=== PATIENT | male | born 1950 | race Caucasian/White ===

== ENCOUNTER 2020-08-07 08:11 | Outpatient (CLI) | payer MEDICARE, SELFPAY ==
--- NOTE | ~2020-08-07 | CT_ITS ---
EXAMINATION: CT abdomen pelvis w con INDICATION: Right upper quadrant mass and lump TECHNIQUE: Computed tomographic images of the abdomen and pelvis were obtained after the administrati on of 100 cc of Omnipaque 350 intravenous contrast. The dose-length product (DLP) was 851.92 mGy-cm. Automated exposure control and iterative reconstruction technique were employed. COMPARISON: None available FINDINGS: Minimal dependent atelectasis is present in the lung bases. The heart size is normal. The l iver, spleen, pancreas, gallbladder, and adrenal glands are normal. Cysts of the kidneys measure up t o 1.7 cm on the right. No pathologically enlarged abdominal or pelvic lymph nodes are identified. The re is calcified atherosclerosis of the aorta and many of the other arteries. The appendix is normal. There is no free intraperitoneal gas or evidence of bowel obstruction. There is a tiny umbilical shantel ia containing fat. A large volume of colonic stool is present. There is mild lumbar spondylosis. No r ight upper quadrant mass is identified by CT. IMPRESSION: 1. No CT correlate for the patient's symptoms. Reviewed, dictated and finalized at location B.
[2020-08-07 08:43] LABS: Estimated Glomerular Filt Rate > 60
== END 2020-08-07 08:12 | disposition home or self-care (01) ==
PROVIDERS: PCP Family Medicine; Visit Provider Family Medicine
DX: R22.2 Localized swelling, mass and lump, trunk (principal)
CPT/HCPCS: 74177; Q9967

== ENCOUNTER 2020-09-26 15:19 | Emergency (ER) | payer MEDICARE, SELFPAY ==
[2020-09-26 15:30] VITALS: BP 115/89; PULSE 72; RESP 18; TEMP 35.9; O2SAT 100
--- NOTE | 2020-09-26 16:19 | ED.GENADULT ---
HPI - General Adult General Chief complaint: Skin/Abscess/Foreign Body Stated complaint: bite on back, rash Time Seen by Provider: 09/26/20 16:13 Source: patient Mode of arrival: ambulatory Limitations: no limitations History of Present Illness HPI narrative: 69-year-old with no major medical problems here with complaints of insect bite to the left side of the back. He is not quite sure whether its a spider or not at this time. He denies any shortness of breath, chest pain, nausea or vomiting. Complains of rash on the anterior aspect of the chest. Onset (ago): day(s) (1) Location: back Radiation: non-radiation Severity: mild Pain Consistency: constant Relieving factors: none Exacerbating factors: none Associated symptoms: denies other symptoms Related Data Home Medications Medication Instructions Recorded Confirmed finasteride 5 mg tablet 5 mg PO DAILY 07/21/19 07/31/20 Allergies Allergy/AdvReac Type Severity Reaction Status Date / Time No Known Allergies Allergy Verified 07/31/20 10:31 Review of Systems Review of Systems: All systems reviewed & are unremarkable except as noted in HPI and below Constitutional: Constitutional: Reports no additional constitutional complaints Eyes: Eyes: Reports no additional eye complaints ENT: Reports system reviewed and no additional complaints, except as documented Cardiovascular: Cardiovascular: Reports no additional cardiovascular complaints Respiratory: Respiratory: Reports no additional respiratory complaints Musculoskeletal: Musculoskeletal: Reports no additional musculoskeletal complaints Integumentary/Breasts: Skin/Breast: Reports system reviewed and no additional complaints, except as docu and Reports as per HPI Neurologic: Reports system reviewed and no additional complaints, except as documented Psychiatric: Psychiatric: Reports no additional psychiatric complaints [facility] Past Medical History Medical History Abdominal wall mass BMI 29.0-29.9,adult Family History Family History Mother Family history of elevated blood lipids Family history of coronary artery disease Grandparent Cerebrovascular accident Diabetes mellitus Social History Social History Smoking status: Former smoker Second hand tobacco smoke exposure: No Alcohol intake: current Exam Narrative: GENERAL: Well-appearing, well-nourished, and in no acute distress. HEAD: Normocephalic, atraumatic. EYES: PERRLA and EOMI. NECK: Supple. CHEST: Clear to auscultation. No respiratory distress. HEART: Regular rate and rhythm. No murmur heard. Normal peripheral pulses. EXTREMITIES: Normal range of motion. No edema. SKIN: Warm, dry, no obvious rash noted on the chest , a bite yina on the left side below the scapular border , no sign of infection with mild erythema abou2.5 cms in diameter . NEURO: No focal deficits. Alert and oriented x3. PSYCH: Normal mood and affect. Course Course Emergency Course: Inform patient that he does not need any antibiotic at this point it appears to be like a local reaction fluid for of insect bite. Advised him to take steroids for rash. And if it is getting infected follow-up with his primary doctor or return to the ER. Vital Signs Vital signs: Vital Signs Temperature 35.9 C L 09/26/20 15:30 Pulse Rate 72 09/26/20 15:30 Respiratory Rate 18 09/26/20 15:30 Blood Pressure 115/89 09/26/20 15:30 Pulse Oximetry 100 09/26/20 15:30 Temperature 35.9 C L 09/26/20 15:30 Pulse Rate 72 09/26/20 15:30 Respiratory Rate 18 09/26/20 15:30 Blood Pressure 115/89 09/26/20 15:30 Pulse Oximetry 100 09/26/20 15:30 Medical Decision Making Vital Signs Vital Signs: Vital Signs Temperature 35.9 C L 09/26/20 15:30 Pulse Rate 72 09/26/20 15:30 Respiratory Rate 18
== END 2020-09-26 16:36 | disposition home or self-care (01) ==
PROVIDERS: Emergency Provider Family Medicine; PCP Family Medicine
DX: S20.462A Insect bite (nonvenomous) of left back wall of thorax, initial encounter (principal); W57.XXXA Bitten or stung by nonvenomous insect and other nonvenomous arthropods, initial encounter; Z87.891 Personal history of nicotine dependence
CPT/HCPCS: 99283

== ENCOUNTER 2021-08-09 08:56 | Outpatient (CLI) | payer MEDICARE, SELFPAY ==
--- NOTE | ~2021-08-09 | US_ITS ---
EXAMINATION:US venous doppler LE BI INDICATION:Left lower extremity pain TECHNIQUE: Multiple grayscale, color flow and Doppler images of the left lower extremity deep venous systems were obtained and reviewed. COMPARISON:No prior studies for comparison. FINDINGS: The common femoral, superficial femoral and popliteal veins demonstrate normal respiratory variation, augmentation and compressibility. Color flow is also seen within the posterior tibial, pe roneal, greater saphenous and profunda veins. IMPRESSION: 1: No lower extremity deep venous thrombosis. Reviewed, dictated and finalized at location A.
== END 2021-08-09 08:57 | disposition home or self-care (01) ==
PROVIDERS: PCP Family Medicine; Visit Provider Nurse Practitioner Family
DX: M79.662 Pain in left lower leg (principal)
CPT/HCPCS: 93970

== ENCOUNTER 2021-09-20 09:14 | Outpatient (CLI) | payer MEDICARE, SELFPAY ==
--- NOTE | ~2021-09-20 | US_ITS ---
EXAMINATION: US art doppler w press ELISABETH BI DATE: 09/20/2021 14:49 CDT INDICATION: Elevated cholesterol levels. History of smoking. Loss of hair with tingling and numbness and leg pain. TECHNIQUE: Segmental pressures and plethysmographic and Doppler waveforms of the brachial and lower e xtremity arteries were obtained. COMPARISON: None. FINDINGS: Right and left brachial artery pressures of 99 mm Hg and 120 mm Hg, respectively, are concordant (nor mal difference <= 30 mmHg). The right high-thigh pressure index is 1.3 (normal > 1.2). The right ankle-brachial index (CORINNE) is 1. 19 (normal >= 0.9-1.0). The right great toe-brachial index (TBI) is 1.24 (normal >= 0.60). The right lower extremity segmental pressure gradients are normal (normal gradients <= 20-30 mmHg between adjac ent levels on the same leg or the same levels on the two legs). Arterial Doppler waveforms are biphas ic. The left high-thigh pressure index is 1.22. The left CORINNE is 1.2. The left TBI is 1. The left lower ex tremity segmental pressure gradients are normal. Arterial Doppler waveforms are biphasic. IMPRESSION: 1. Normal lower extremity arterial Doppler. Reviewed, dictated and finalized at location A.
== END 2021-09-20 09:15 | disposition home or self-care (01) ==
PROVIDERS: PCP Family Medicine; Visit Provider Nurse Practitioner Family
DX: I73.9 Peripheral vascular disease, unspecified (principal); M79.662 Pain in left lower leg
CPT/HCPCS: 93923

== ENCOUNTER 2024-06-19 13:35 | Emergency (ER) | payer MEDICARE, SELFPAY ==
--- OUTSIDE RECORDS SUMMARY | 2024-06-19 13:37 | XMS_ITS | Clinical Summary ---
Author Organization [facility] Address [address] [place] [id number] Care Team Providers Care Sybase Developer Name Role Phone Miguel Angel Nguyễn MD Primary Care Provider [phone] Allergies No known active allergies Medications simvastatin (ZOCOR) 20 MG tablet Take 1 tablet (20 mg total) by mouth daily. 10/31/2022 Active finasteride (PROSCAR) 5 MG tablet Take 1 tablet (5 mg total) by mouth daily. 12/17/2022 Active diclofenac EC (VOLTAREN) 75 MG tabletIndication s:Pain of left heel Take 1 tablet (75 mg total) by mouth 2 (two) times daily. 60 tablet 01/06/2023 Active Active Problems No known active problems Immunizations Immunization Administration Dates Next Due Influenza (Generic) 11/23/2019,11/17/2018 Influenza Adult (Generic) 11/20/2020,11/22/2017, 11/18/2016,01/11/2015 Pneumococcal (Pneumovax 23) 11/23/2019 Pneumococcal (Prevnar 13) 11/17/2018 Family History Medical History Relation Comments Cancer Brother Cancer Mother Relation Status Comments Brother Mother Social History Tobacco Use Types Packs/Day Years Used Date Smoking Tobacco: Former Cigarettes Q uit: 1977 Passive Smoke Exposure: Past Smokeless Tobacco: Never Tobacco Cessation:Counseling Given: Not Answered Alcohol Use Standard Drinks/Week Comments Yes 0 (1 standard drink = 0.6 oz pur e alcohol) PHQ-2 Answer Date Recorded Patient Health Questionnaire-2 Score 0 01/06/2023 Sex and Gender Information Value Date Recorded Sex Assigned at Not on file Legal Sex Male 4:03 PM CDT Gender Identity Not on file Sexual Orientation Not on file Last Filed Vital Signs Vital Sign Reading Time Taken Comments Blood Pressure 138/85 01/06/2023 7:00 AM CHAIR INSPECTOR Pulse 67 01/06/2023 7:00 AM CHAIR INSPECTOR Temperature 36.2 C (97.2 F) 01/06/2023 7:00 AM CHAIR INSPECTOR Respiratory Rate 20 01/06/2023 7:00 AM CHAIR INSPECTOR Oxygen Saturation 100% 01/06/2023 7:00 AM CHAIR INSPECTOR Inhaled Oxygen Concentration - - Weight 98.4 kg (217 lb) 01/06/2023 7:00 AM CHAIR INSPECTOR Height 181.6 cm (5' 11.5 ) 01/06/2023 7:00 AM CS T Body Mass Index 29.84 01/06/2023 7:00 AM CHAIR INSPECTOR Plan of Treatment Health Maintenance Due Date Last Done Comments Colorectal Cancer Screening Colonoscopy (10 Years) 1950 Hepatitis C 1968 DTaP, Tdap and Td Vaccines (1 - Tdap) 1969 Zoster Vaccines (1 of 2) 2000 Annual Medicare Wellness Visit 11/28/2015 COVID-19 Vaccine ( season) 2023 02/06/2022, 01/09/2021, 04/19/2020, Additional history exists PHQ-2 (Physician [place]) 02/10/2024 01/06/2023 Pneumococcal Vaccine: 50+ Years Completed 11/23/2019, 11/17/2018 RSV Immunization or 60+ Years Completed 12/02/2022 Meningococcal B Vaccine Aged Out No l onger eligible based on patient's age to complete this topic Meningococcal Vaccine Aged Out No diana ernesto eligible based on patient's age to complete this topic RSV Immunizations Under 20 Months Aged Out No longer eligible based on patient's age to complete this topic Insurance MEDICARE AETNA Care Teams Sybase Developer Relationship Specialty Start Date End Date Miguel Angel Nguyễn MD [address] [place] [address] PCP - General FAMILY PRACTICE 07/18/21
[2024-06-19 13:45] VITALS: BP 117/77; PULSE 72; RESP 18; TEMP 36.5; O2SAT 100
--- NOTE | 2024-06-19 13:49 | ED_ITS ---
HPI - General Adult General Chief complaint: Wound/Laceration Stated complaint: nail in foot Time Seen by Provider: 06/19/24 13:49 Source: patient, RN notes reviewed and old records reviewed Mode of arrival: ambulatory Limitations: no limitations History of Present Illness HPI narrative: 3-year-old male presents to [facility] with complaints puncture wound to the bottom of his left foot which occurred when he stepped on a board in the pig [place]. Patient reports that he felt it go through his shoe and prick the mid aspect of his left plantar region of his foot. Patient reports minimal tenderness to his plantar aspect of his left foot with no bleeding noted or open skin. Patient reports that his tetanus shot is not up to date MD complaint: stepped on nailk needs tetanus shot Onset (ago): hour(s) (prior to arrival today) Treatments prior to arrival: none Related Data Home Medications ?Medication ?Instructions ?Recorded ?Confirmed ?Last Taken ?Type finasteride 5 mg tablet 5 mg PO DAILY 07/21/19 09/29/23 Unknown History Allergies Allergy/AdvReac Type Severity Reaction Status Date / Time No Known Allergies Allergy Verified 06/19/24 13:45 Review of Systems Review of Systems: CONSTITUTIONAL: Denies fever, chills, or sweats. CARDIOVASCULAR: Denies chest pain, palpitations, or edema. RESPIRATORY: Denies cough or dyspnea. GASTROINTESTINAL: Denies abdominal pain, nausea, vomiting SKIN: Reports stepping on a nail that went through his boot and he felt the sharpness f nail on the mid plantar aspect of left foot, no bleeding noted or open wound is tender on palpation MUSCULOSKELETAL: Denies myalgia. NEUROLOGIC: Denies headache, numbness All systems reviewed & are unremarkable except as noted in HPI and below PMFSH Past Medical History Medical History (Updated 06/19/24 @ 14:13 by Kitty Cuevas NP) Enlarged prostate without lower urinary tract symptoms (luts) Mixed hyperlipidemia Epididymitis Abdominal wall mass BMI 29.0-29.9,adult Family History Family History Mother Family history of elevated blood lipids Family history of coronary artery disease Grandparent Cerebrovascular accident Diabetes mellitus Father No problems noted. Sibling No problems noted. 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 There is no relevant family history pertinent to the presenting complaint Exam Narrative: GENERAL: Well-appearing, well-nourished, and in no acute distress. HEAD: Normocephalic, atraumatic. EYES: PERRLA and EOMI. ENT: Nares clear, no rhinorrhea or epistaxis. Mucous membranes moist. NECK: Supple.no lymphadenopathy CHEST: Clear to auscultation. No respiratory distress. HEART: Regular rate and rhythm. No murmur heard. Normal peripheral pulses. ABDOMEN: Soft, nontender, nondistended, normal active bowel sounds. EXTREMITIES: Normal range of motion. No edema. SKIN: Warm, dry. minimal tenderness to plantar aspect of his left mid foot, no bloody drainage or open wound noted Patient reports that he was in pig [place] and stepped on nail that went through his shoe,no warmth noted NEURO: No focal deficits. Alert and oriented x3. Course Course Emergency Course: Patient is aware of diagnosis, understands and agrees to treatment plan. Anticipatory guidance given. Patient agrees to follow-up as directed and is aware of reasons to seek care at the emergency department. Portions of this record may have been created with voice recognition software Level of Care: Express Care Visit Vital Signs Vital signs: Vital Signs Temperature 36.5 C 06/19/24 13:45 Pulse Rate 72 06/19/24 13:45 Respiratory Rate 18 06/19/24 13:45 Blood Pressure 117/77 06/19/24 13:45 Pulse Oximetry 100 06/19/24 13:45 Oxygen Delivery Room Air 06/19/24 13:45 Temperature 36.5 C 06/19/24 13:45 Pulse Rate 72 06/19/24 13:45 Respiratory Rate 18 06/19/24 13:45 Blood Pressure 117/77 06/19/24 13:45 Pulse Oximetry 100 06/19/24 13:45 Oxygen Delivery Room Air 06/19/24 13:45 Reviewed Medical Decision Making Differential Diagnosis Differential Diagnosis: puncture wound bottom of left foot, stepped on nail, needs update on tetanus Medical Records Medical records reviewed: Yes I reviewed the external patient's medical records. Vital Signs Vital Signs: Vital Signs Temperature 36.5 C 06/19/24 13:45 Pulse Rate 72 06/19/24 13:45 Respiratory Rate 18 06/19/24 13:45 Blood Pressure 117/77 06/19/24 13:45 Pulse Oximetry 100 06/19/24 13:45 Oxygen Delivery Room Air 06/19/24 13:45 Temperature 36.5 C 06/19/24 13:45 Pulse Rate 72 06/19/24 13:45 Respiratory Rate 18 06/19/24 13:45 Blood Pressure 117/77 06/19/24 13:45 Pulse Oximetry 100 06/19/24 13:45 Oxygen Delivery Room Air 06/19/24 13:45 reviewed Critical Care Time Critical Care Time Critical Care Time: No Discharge Plan Discharge Clinical Impression: Puncture wound of foot excluding toes without complication Patient Disposition: Home Condition: Stable Instructions: Antibiotic Form, Puncture Wound (ED) Additional Instructions: wash left plantar aspect of foot twice daily with liquid Dial soap rinse apply bacitracin ointment watch for increasing infection--redness, swelling, drainage Tylenol or ibuprofen for any fever pain follow up with PCP in 7-10 days for a wound check recheck if develop fever, chills, increasing symptom Go to the ER if your symptoms become worse of if ANY new symptoms develop antibiotic as prescribed complete all doses If your symptoms persist, change or worsen significantly before you can contact your personal physician then please, without delay, go to the emergency department for further evaluation. Follow-up with PCP in 7-10 days or sooner if needed monitor for any fevers Patient Language: [place] Prescriptions: New cephalexin 500 mg capsule 500 mg PO Q8H Qty: 21 0RF No Action finasteride 5 mg tablet 5 mg PO DAILY simvastatin 20 mg tablet 20 mg PO DAILY Qty: 90 3RF Follow-up/Referrals: Miguel Angel Nguyễn MD [Primary Care Provider] - Time of Disposition: 14:05 Quality [place] Coma Scale Eyes: Open Verbal: Oriented and Alert Motor: Follows Commands [place] Coma Total Score: 15
[2024-06-19] MEDS: TETANUS,DIPHTHERIA,AC PERTUSSIS ADULT (0.5 ML) BOOSTRIX IM (13:53)
== END 2024-06-19 14:07 | disposition home or self-care (01) ==
PROVIDERS: Emergency Provider Registered Nurse; PCP Family Medicine
DX: S91.332A Puncture wound without foreign body, left foot, initial encounter (principal); W45.0XXA Nail entering through skin, initial encounter; Z23 Encounter for immunization; N40.0 Benign prostatic hyperplasia without lower urinary tract symptoms; E78.2 Mixed hyperlipidemia; Z87.891 Personal history of nicotine dependence
CPT/HCPCS: 90471; 90715; 99213; G0463

== ENCOUNTER 2024-12-05 08:34 | Outpatient (CLI) | payer MEDICARE, SELFPAY ==
--- NOTE | ~2024-12-05 | XR_ITS ---
EXAMINATION: XR shoulder LT min 2V, 12/05/2024 8:48 CDT HISTORY: pt states pain to anterior/ lateral side x 3 wks COMPARISON: No comparisons available. Findings: No acute fracture or malalignment. Severe degenerative changes Soft tissues unremarkable. Impression: No acute fracture or malalignment. Reviewed, dictated and finalized at location P. Impression: No acute fracture or malalignment.
--- OUTSIDE RECORDS SUMMARY | 2024-12-05 08:59 | XMS_ITS | Clinical Summary ---
Author Organization [facility] Address [address] [place] [id number] Care Team Providers Care Modeling Agency Manager Name Role Phone Miguel Angel Nguyễn MD Primary Care Provider [phone] Allergies No known active allergies Medications simvastatin [...] Comments Blood Pressure 138/85 01/06/2023 7:00 AM ENGINE SERVICE REPAIRER Pulse 67 01/06/2023 7:00 AM ENGINE SERVICE REPAIRER Temperature 36.2 C (97.2 F) 01/06/2023 7:00 AM ENGINE SERVICE REPAIRER Respiratory Rate 20 01/06/2023 7:00 AM ENGINE SERVICE REPAIRER Oxygen Saturation 100% 01/06/2023 7:00 AM ENGINE SERVICE REPAIRER Inhaled Oxygen Concentration - - Weight 98.4 kg (217 lb) 01/06/2023 7:00 AM ENGINE SERVICE REPAIRER Height 181.6 cm (5' 11.5) 01/06/2023 7:00 AM CS T Body Mass Index 29.84 01/06/2023 7:00 AM ENGINE SERVICE REPAIRER Plan of Treatment Health Maintenance Due Date Last Done Comments Colorectal Cancer Screening Colonoscopy (10 Years) 1950 Hepatitis C 1968 DTaP, Tdap and Td Vaccines (1 - Tdap) 1969 Zoster Vaccines (1 of 2) 2000 Annual Medicare Wellness Visit 11/28/2015 PHQ-2 (Physician [place]) 02/10/2024 01/06/2023 COVID-19 Vaccine ( season) 2024 02/06/2022, 01/09/2021, 04/19/2020, Additional history exists Influenza Adult (#1) 2024 12/02/2022, 11/26/2021, 11/20/2020, Additional history exists Pneumococcal Vaccine: 50+ Years Completed 11/23/2019, 11/17/2018 RSV Immunization or 60+ Years Completed 12/02/2022 Hepatitis A Vaccines Aged Out No long er eligible based on patient's age to complete this topic Meningococcal B Vaccine Aged Out No l onger eligible based on patient's age to complete this topic Meningococcal Vaccine Aged Out No diana ernesto eligible based on patient's age to complete this topic RSV Immunizations Under 20 Months Aged Out No longer eligible based on patient's age to complete this topic Insurance MEDICARE AET Care Teams Modeling Agency Manager Relationship Specialty Start Date End Date Miguel Angel Nguyễn MD [address] [place] [place] [address] PCP - General FAMILY PRACTICE 07/18/21
== END 2024-12-05 08:35 | disposition home or self-care (01) ==
PROVIDERS: PCP Family Medicine; Visit Provider Nurse Practitioner Family
DX: M25.512 Pain in left shoulder (principal)
CPT/HCPCS: 73030